=== PATIENT | female | born 2005 | race Caucasian/White ===

== ENCOUNTER 2023-11-15 00:39 | Inpatient (IN) | payer BC ==
[2023-11-15] VITALS (11 sets, daily range): BP systolic 98–127; BP diastolic 60–85; PULSE 99–111; TEMP 98.9–101.6
[~2023-11-15] VITALS: Ht 157.5 cm; Wt 52.7 kg
[2023-11-15] MEDS ORDERED: NS 1,000 ML IV ONE (01:15)
[2023-11-15 01:42] LABS: HEMOGLOBIN 12.5 g/dl (12.0-15.0); MEAN CELL VOLUME 89 fl (80.0-95.0); MEAN CORPUSCULAR HEMOGLOBIN 29 pg (26-32); MEAN CORPUSCULAR HGB CONC 33 g/dl (33.0-37.0); MEAN PLATELET VOLUME 9.1 fl (7.4-10.4); PLATELET COUNT 391 K/mm3 (130-400); RED BLOOD COUNT 4.29 M/mm3 (4.10-5.30)
[2023-11-15 02:00] LABS: PH 5.5 (5.0-8.5); URINE APPEARANCE TURBID (CLEAR/HAZY); URINE BLOOD 1+ (NEGATIVE); URINE COLOR YELLOW (YELLOW); URINE GLUCOSE NEGATIVE (NEGATIVE); URINE KETONE 1+ (NEGATIVE); URINE NITRATE POSITIVE (NEGATIVE); URINE PROTEIN(semi-quant) 2+ (NEGATIVE); URINE UROBILINOGEN 0.2 E.U/dL (0.2-1.0)
[2023-11-15 02:02] LABS: COLLECTION METHOD CLEAN CATCH
[2023-11-15 02:06] LABS: ALANINE AMINOTRANSFERASE 19 U/L (0-55); ALBUMIN 3.1 gm/dL (3.5-5.0); ALKALINE PHOSPHATASE 108 U/L (40-150); ANION GAP 15 mmol/L (7-16); AST,SGOT 14 U/L (5-34); BLOOD UREA NITROGEN 12 mg/dL (7-19); CALCIUM 9.9 mg/dL (8.4-10.2); CARBON DIOXIDE 20 mmol/L (22-29); CHLORIDE 100 mmol/L (98-107); CREATININE, serum 0.85 mg/dL (0.57-1.11); GLUCOSE 108 mg/dL (70-99); LIPASE < 7 U/L (8-78); POTASSIUM 3.7 mmol/L (3.5-4.5); SODIUM 135 mmol/L (136-145)
[2023-11-15] MEDS ORDERED: cefTRIAXone 1 G in Water For Injection,Sterile 10 ML IV ONE (02:15)
[2023-11-15 02:16] LABS: BILIRUBIN,TOTAL 0.6 mg/dL (0.2-1.2)
[2023-11-15 02:19] LABS: BAND 10 % (0-10); HYPOCHROMIA 1+; LYMPHOCYTE 12 % (20.0-51.0); NEUTROPHILS 71 % (42.0-75.2); PLATELET ESTIMATE NORMAL (NORMAL)
[2023-11-15] MEDS ORDERED: NS 50 ML IV SCH (02:21)
[2023-11-15] MEDS ORDERED: Iohexol 300 - 100 ML VIAL IV ONE (02:21)
[2023-11-15] MEDS ORDERED: RETIN-A CR0.1 20GM TP (03:37)
[2023-11-15] MEDS ORDERED: ALDACTONE50 MG PO (03:37)
[2023-11-15] MEDS ORDERED: EVOCLIN50GM TOP (03:38)
[2023-11-15] MEDS ORDERED: TRI-LO-ESTARYL1 EACH PO (03:39)
[2023-11-15] MEDS ORDERED: NS 1,000 ML IV SCH (04:00)
[2023-11-15] MEDS ORDERED: Acetaminophen 325 MG TAB PO PRN (04:00)
--- NOTE | 2023-11-15 04:20 | NUR ---
FEMALE PATIENT ARRIVED TO ROOM #328 VIA WHEELCHAIR FROM ER. PATIENT ASSISTED TO BED WITH STAND BY ASSIST. GAIT STEADY. INT TO LEFT AC INTACT WITH NO COMPLICATIONS NOTED. PATIENT ON ROOM AIR. VITAL SIGNS STABLE. PATIENT VERBALIZED UNDERSTANDING OF BED CONTROLS AND CALL LIGHT. PATIENT REQUESTED SANDWICH TRAY. SANDWICH TRAY, WATER, AND ICE GIVEN. PATIENT DENIES ANY OTHER NEEDS AT THIS TIME. BED IN LOW POSITION WITH WHEELS LOCKED WITH RAILS UP X3 AND CALL LIGHT WITHIN REACH.
[2023-11-15] MEDS ORDERED: CLINDAGEL 40 ML40 ML TOP (05:51)
[2023-11-15] MEDS ORDERED: HYDROmorphone 0.5 MG/0.5 ML SYRINGE IV PRN (06:00)
[2023-11-15] MEDS ORDERED: Ketorolac 15 MG/ML VIAL IV PRN (09:45)
[2023-11-15] MEDS ORDERED: Benzonatate 100 MG CAP PO ONE (10:00)
--- NOTE | 2023-11-15 10:21 | NUR ---
Customer Service Representative met with patient to discuss discharge planning. Patient currently lives in [place] but is from [place]. Patient is here studying at [employer]. Patient utilizes [facility] on campus for primary care and medications. Patient does not use any DME and is independent with ADLS. Patient does not have DPOA-HC and her next of kin would be her mother, Rocio (ph#[phone]) who lives in [place]. Patient plans to return home at time of discharge. Discharge Plan; Home
--- NOTE | 2023-11-15 12:13 | NUR ---
Pt resting in bed with pain 8/10 in bilateral flanks. Pain medication provided per emar. Pt reports weak, dry cough. Pt refused lovenox injection. Steady gait to bathroom. Will continue to [facility].
--- NOTE | 2023-11-15 12:57 | NUR ---
Initial visit; Patient states she is not feeling much better. Wire Winding Machine Tender let her know that she was sad that she isn't doing well. Wire Winding Machine Tender asked what she could do to help. Aracelis asked if Wire Winding Machine Tender would pray for her Grandmother Poonam Levin. Wire Winding Machine Tender said she of course would pray for her Grandmother and for Aracelis as well. She smiled faintly. Wire Winding Machine Tender felt concerned for Aracelis.
[2023-11-15] MEDS ORDERED: Benzonatate 100 MG CAP PO PRN (16:00)
--- NOTE | 2023-11-15 21:00 | NUR ---
PT A&O X3 SITTING IN BED. VSS ON ROOM AIR. PT DENYING THE NEED FOR PAIN MEDS AT THIS TIME. NS INFUSING TO LEFT AC AT 125MLS. PT DENIES FURTHER NEEDS. CALL LIGHT IN REACH
[2023-11-15] MEDS ORDERED: guaiFENesin Oral Soln 200 MG/10 ML UD PO PRN (22:15)
[2023-11-15] MEDS ORDERED: Menthol Cough/Sore Throat LOZENGE MM PRN (22:15)
--- NOTE | 2023-11-15 23:20 | NUR ---
PT CALLED OUT & STATES SHE FEELS SOA. PT TEARFUL IN ROOM. RR 16, HR 110, TEMP 101.6, OTHER VSS. LUNGS CTA. GIVEN PRN TYLENOL PER NOV. PT RECENTLY RECEIVED PRN DILAUDID FOR PAIN, PT REPORTS HAS NOT HELPED. HOSPITALIST REINA NOTIFIED & NEW ORDERS FOR RESP VIRUS PANEL & ATIVAN, GIVEN PER NOV. ALSO GAVE PRN TORADOL FOR PAIN 03/04.
[2023-11-15] MEDS ORDERED: LORazepam 2 MG/ML 1 ML VIAL IV ONE (23:30)
[2023-11-16] VITALS (11 sets, daily range): BP systolic 101–130; BP diastolic 66–81; PULSE 75–111; TEMP 98.1–102
--- NOTE | 2023-11-16 | NUR ---
PT RESTING IN BED WITH UNLABORED RESP. PT REPORTS SOA & PAIN HAVE IMPROVED. GIVEN APPLE JUICE PER PT REQUEST. DENYING FURTHER NEEDS. CALL LIGHT IN REACH
[2023-11-16] MEDS ORDERED: cefTRIAXone 1 G in Water For Injection,Sterile 10 ML IV SCH (02:00)
--- NOTE | 2023-11-16 06:15 | NUR ---
PT RESTING IN BED THIS MORNING WITH UNLABORED RESP. GIVEN PRN TORADOL FOR PAIN TO BACK/FLANK. PT DENYING SOA THIS AM. PT STILL REPORTS DRY COUGH, GAVE PRN PER NOV. DENYING FURTHER NEEDS. CALL LIGHT IN REACH
[2023-11-16 07:26] LABS: ALBUMIN 1.9 gm/dL (3.5-5.0); BILIRUBIN,DIRECT 0.2 mg/dL (0.0-0.5); BILIRUBIN,TOTAL 0.4 mg/dL (0.2-1.2); TOTAL PROTEIN 5.3 gm/dL (6.2-8.1)
--- NOTE | 2023-11-16 07:50 | NUR ---
Received report from primary nurse Gail CRONIN at 0715. Gail CRONIN notified that this student will be assisting with cares this date.
--- NOTE | 2023-11-16 08:00 | NUR ---
PATIENT IS A&O. OCCATIONALLY DISPLAYS HIGH ANXIETY BEHAVIORS. TREE FALLER REPORTS GIVING HER A ONE TIME DOSE OF ATIVAN. NOTED LOW GRADE TEMP OF 99.3, TREE FALLER REPORTS TEMP OF 101.6 AND HR OF 110 OVER NIGHT. SATS AT 95% ON RA. PATIENT REQUESTING IV DILAUDID FREQUENTLY, GIVEN WITH AM MEDS. PATIENT ALSO REPORTS COUGH AND IS VERY DRAMATIC WITH COUGHING SPELLS, OFTEN OCCURING WHEN STAFF IS PRESENT, AND IS NON-PRODUCTIVE. FLU, COVID & RESP ALL NEGATIVE. SCAN OF CHEST SHOWED NO PNA. PRN COUGH DROPS ORDERED AND OFFERED TO PATIENT. SHE ALSO REPORTS DECREASED APPETITE, NO EMESIS. IV FLUIDS INFUSING VIA PUMP INTO LEFT AC IV. LAB CALLED AND REPORTED WBC OF 21.2 WHICH IS DOWN FROM 30.4, PROVIDERS AWARE. HEAD TO TOE ASSESSMENT COMPLETE. STUDENT NURSE WORKING WITH PATIENT TODAY, SEE CHARTING. PATIENT RESTING UP IN BED WITH CALL LIGHT IN REACH.
--- NOTE | 2023-11-16 08:54 | NUR ---
PT C/O PAIN WITH COUGHING IN ABDOMEN. PRN OPTIONS PROVIDED AND PT ACCEPTED PRN ROBITUSSIN AND COUGH DROPS. CALL TO PHARMACY FOR COUGH DROPS. PT REFUSED LOVENOX INJECTION. PT REQUESTED PAIN MEDICATION. MADDI CRONIN NOTIFIED OF REQUEST.
[2023-11-16] MEDS ORDERED: Spironolactone 25 MG TAB PO SCH (09:00)
[2023-11-16] MEDS ORDERED: Ondansetron 4 MG/2 ML VIAL IV ONE (10:15)
[2023-11-16 10:34] LABS: BASO # 0.1 K/mm3 (0.0-0.2); BASO % 0.6 % (0.0-2.0); EOS # 0.1 K/mm3 (0.0-0.7); EOS % 0.3 % (0.0-4.0); GRAN # 16.8 K/mm3 (1.4-6.5); GRAN % 79.4 % (42.2-75.2); LYMPH # 2.6 K/mm3 (1.2-3.4); LYMPH % 12.2 % (20.0-51.0); MEAN CELL VOLUME 89 fl (80.0-95.0); MEAN CORPUSCULAR HGB CONC 33 g/dl (33.0-37.0); MEAN PLATELET VOLUME 9.5 fl (7.4-10.4); MONO # 1.4 K/mm3 (0.1-0.6); MONO % 6.4 % (1.7-9.3); PLATELET COUNT 369 K/mm3 (130-400); RED BLOOD COUNT 3.46 M/mm3 (4.10-5.30); REDCELL DISTRIBUTION WIDTH-CV 13.3 % (11.5-14.5)
[2023-11-16 10:37] LABS: HEMATOCRIT 30.9 % (35.0-45.0); HEMOGLOBIN 10.3 g/dl (12.0-15.0); MEAN CORPUSCULAR HEMOGLOBIN 30 pg (26-32)
[2023-11-16] MEDS ORDERED: oxyCODONE 5 MG TAB PO PRN (10:45)
[2023-11-16 10:49] LABS: CREATININE, serum 0.68 mg/dL (0.57-1.11); POTASSIUM 3.6 mmol/L (3.5-4.5)
--- NOTE | 2023-11-16 11:58 | NUR ---
REPORTED OFF PRIMARY NURSE MADDI CRONIN.
--- NOTE | 2023-11-16 13:11 | NUR ---
D: Initial visit: Key Account Director stopped by room on rounds. Pt was resting and content. A: Pt has no needs right now. She is from [place] going to school at [employer]. Her parents grew up in [place] and both went to [employer]. P: Key Account Director informed pt that if she needed anything from the envelope patternmaker area to let her nurse know. Key Account Director will follow up as needed.
--- NOTE | 2023-11-16 13:30 | NUR ---
PATIENT REFUSING LUNCH, REPORTS DECREASE APPETITE. PATIENT ALSO REQUESTING SOMETHING MORE FOR PAIN. GAVE PRN ROXICODONE, SEE MAR. PATIENT STILL COUGHING A LOT, NON-PRODUCTIVE, PRN COUGH DROPS.
--- NOTE | 2023-11-16 14:33 | NUR ---
conditioning room worker was informed pt will potentially discharge tomorrow but is experiencing feels of unwell, decreased apetite, and weakness. SW was informed by Director Ana Sullivan to speak with pt and see if she would be agreeable to SW calling the clinical documentation improvement specialist at [facility] to inform them of her medical status and potential to not noriega back to classess immediately. SW met with pt and informed her of this. She appeared relieved and gave SW permission to call the [facility]. Pt reports she is in the college of [employer]. Pt was informed she is still responsible for informing her professors of the inability to attend classes sometimes. Pt verbalized understanding and was agreeable to this plan. SW spoke with the Cosmetologist Apprentice clinical documentation improvement specialist and informed him of patient's status and medical concerns. He was agreeable to the plan and informed SW that they will support pt in anyway and will follow up with her and let faculty know too. He informed SW to tell patient to look out for an email from the student support and accountability office to assist her. SW informed pt via voicemail as she did not answer her room phone. Discharge Plan: home
--- NOTE | 2023-11-16 15:00 | NUR ---
REPORT RECEIVED FROM MEHRDAD MASCORRO
--- NOTE | 2023-11-16 16:00 | NUR ---
PT RECIEVED TYLENOL FOR 102.0 TEMP. PT REPORTING HEADACHE FROM COUGHING, PT REPORTS IMPROVED COUGH THIS EVENING
--- NOTE | 2023-11-16 20:30 | NUR ---
PT IN BED, HAS IVF TO LAC WITH ANTIBIOTIC INFUSING. IV SITE HAS GOOD BLOOD RETURN, MILDLY TENDER WITH PALPATION. PT IS ALERT AND ORIENTED X4.
[2023-11-16] MEDS ORDERED: Melatonin 3 MG TAB PO PRN (23:45)
--- NOTE | 2023-11-16 23:46 | NUR ---
PT ASKING FOR COUGH MED, HAS NPC. PT ALSO WANTING MELATONIN AND PAIN MED. MEDICATED WITH TESSALON PERLES, MELATONIN 9MG AND OXYCODONE 5MG PO NOW. PT INDEPENDENT IN ROOM.
[2023-11-17] VITALS (11 sets, daily range): BP systolic 85–128; BP diastolic 71–81; PULSE 71–106; TEMP 98–101.2
--- NOTE | 2023-11-17 03:53 | NUR ---
REPORTED BY PCT PT HAS FEVER 101.2. PT HAS HEATING PAD ON. MEDICATED WITH TYLENOL 650MG PO, ENCOURAGED NOT TO USE THE HEATING PAD. HAVING NPC, ROBITUSSIN GIVEN. PT UP TO VOID, URINE IS YELLOW. BACK TO BED. IV ANTIBIOTIC CONNECTED AND INFUSING WITHOUT PROBLEM.
--- NOTE | 2023-11-17 07:06 | NUR ---
Received report from NOC Nurse Vargas RN with Primary Nurse Bibi CRONIN.
--- NOTE | 2023-11-17 08:05 | NUR ---
PT RESTING IN BED STATING NO PAIN UNLESS COUGHING. STEADY GAIT AROUND ROOM, A/O X4, TOLERATING GENERAL DIET WELL, PT WITH DRY COUGH. NO NEEDS AT THIS TIME. WILL CONTINUE TO MONITOR.
--- NOTE | 2023-11-17 08:49 | NUR ---
PT OFFERED SUPPLIES FOR SHOWER AND FRESH LINEN. PT ACCEPTED OFFER AND WAS INFORMED TO CALL WHEN READY TO SHOWER FOR NURSE TO COVER IV. PT AxO X4, STEADY GAIT, PAIN ONLY WITH COUGH. PT REFUSING LOVENOX INJ. PT UNDERSTANDS HOW TO CALL AND CALL LIGHT WITHIN REACH.
[2023-11-17] MEDS ORDERED: Patient's Own Medication Item PO SCH (09:00)
[2023-11-17 09:25] LABS: BASO # 0.1 K/mm3 (0.0-0.2); BASO % 0.4 % (0.0-2.0); EOS # 0.1 K/mm3 (0.0-0.7); EOS % 0.9 % (0.0-4.0); GRAN # 8.8 K/mm3 (1.4-6.5); GRAN % 74.9 % (42.2-75.2); HEMOGLOBIN 10.2 g/dl (12.0-15.0); LYMPH # 1.8 K/mm3 (1.2-3.4); LYMPH % 15.4 % (20.0-51.0); MEAN CELL VOLUME 87 fl (80.0-95.0); MEAN CORPUSCULAR HEMOGLOBIN 29 pg (26-32); MEAN CORPUSCULAR HGB CONC 33 g/dl (33.0-37.0); MEAN PLATELET VOLUME 8.9 fl (7.4-10.4); MONO # 0.9 K/mm3 (0.1-0.6); MONO % 7.5 % (1.7-9.3); PLATELET COUNT 439 K/mm3 (130-400); RED BLOOD COUNT 3.51 M/mm3 (4.10-5.30); REDCELL DISTRIBUTION WIDTH-CV 13.2 % (11.5-14.5)
[2023-11-17 09:28] LABS: HEMATOCRIT 30.5 % (35.0-45.0)
[2023-11-17 09:36] LABS: CALCIUM 7.9 mg/dL (8.4-10.2); CREATININE, serum 0.72 mg/dL (0.57-1.11); POTASSIUM 3.9 mmol/L (3.5-4.5)
--- NOTE | 2023-11-17 12:14 | NUR ---
REPORTED OFF TO PRIMARY NURSE KIRSTIE Trinidad RN
[2023-11-17 13:17] LABS: MONOSCREEN NEGATIVE
--- NOTE | 2023-11-17 14:00 | NUR ---
CRITCAL TROPONIN FOR 0.038 CALLED TO KIRSTIE CASTRO. NO NEW ORDERS AT THIS TIME.
[2023-11-17] MEDS ORDERED: Amoxicillin/Clavulanate K+ 500/125 MG TAB PO SCH (17:00)
--- NOTE | 2023-11-17 17:38 | NUR ---
MORRIS CASTRO NOTIFIED OF CRITICAL TROPININ OF 0.041. NO NEW ORDERS AT THIS TIME.
--- NOTE | 2023-11-17 21:00 | NUR ---
LAB UNABLE TO OBTAIN BLOOD FOR ORDERED LABS, REINA Grace APRN NOTIFIED, SHE ATTEMPTED TO PLACE NEW IV SITE X2, THEN ATTEMPTED JUST BLOOD DRAW WITH BUTTERFLY X1, WANTS LAB TO RETRY IN AM.
[2023-11-18] VITALS (7 sets, daily range): BP systolic 100–136; BP diastolic 64–75; PULSE 48–82; TEMP 98.2–98.8
[2023-11-18] MEDS ORDERED: guaiFENesin/Dextromethorphan Oral Soln 200-20 MG/10 ML UD PO PRN (00:45)
--- NOTE | 2023-11-18 08:00 | NUR ---
PATIENT IS A&O AND SITTING UP IN BED. VSS. C/O PAIN RATED AT 5/10 AND REQUESTING SOMETHING FOR PAIN, GIVEN. PATIENT ALSO REPORTS HER COUGH IS BETTER AND COMES & GOES, GAVE PRN COUGH MEDS, SEE MAR. NO C/O N/V. LEFT AC IV TO INT. INDEPENDENT IN ROOM. HEAD TO TOE ASSESSMENT WNL. REFUSED AM LOVENOX INJ. NO OTHER NEEDS AT THIS TIME. CALL LIGHT IN REACH.
[2023-11-18 09:33] LABS: BASO % 0.5 % (0.0-2.0); EOS # 0.2 K/mm3 (0.0-0.7); EOS % 1.8 % (0.0-4.0); GRAN # 5.2 K/mm3 (1.4-6.5); GRAN % 63.5 % (42.2-75.2); HEMOGLOBIN 10.3 g/dl (12.0-15.0); LYMPH # 2.1 K/mm3 (1.2-3.4); MEAN CELL VOLUME 89 fl (80.0-95.0); MEAN CORPUSCULAR HEMOGLOBIN 29 pg (26-32); MEAN CORPUSCULAR HGB CONC 33 g/dl (33.0-37.0); MEAN PLATELET VOLUME 9.1 fl (7.4-10.4); MONO # 0.7 K/mm3 (0.1-0.6); MONO % 8.5 % (1.7-9.3); PLATELET COUNT 498 K/mm3 (130-400); RED BLOOD COUNT 3.58 M/mm3 (4.10-5.30); REDCELL DISTRIBUTION WIDTH-CV 12.8 % (11.5-14.5)
[2023-11-18 09:42] LABS: HEMATOCRIT 31.7 % (35.0-45.0)
[2023-11-18 10:13] LABS: CALCIUM 8.8 mg/dL (8.4-10.2); CREATININE, serum 0.74 mg/dL (0.57-1.11); POTASSIUM 4.2 mmol/L (3.5-4.5)
[2023-11-18 10:20] LABS: TROPONIN-I 0.029 ng/mL (0.00-0.033)
[2023-11-18] MEDS ORDERED: TYLENOL 325MG325 MG PO (12:25)
[2023-11-18] MEDS ORDERED: TESSALON P100 MG/CAP PO (12:25)
[2023-11-18] MEDS ORDERED: HALLS9.1 MG MM (12:26)
[2023-11-18] MEDS ORDERED: ROBITUSSIN DM 105 ML PO (12:26)
[2023-11-18] MEDS ORDERED: AMOXICILLIN/CLA1 TA1 PO (12:28)
[2023-11-18] MEDS ORDERED: IBU600 MG PO (12:29)
--- NOTE | 2023-11-18 13:00 | NUR ---
HOSPITALIST AT BEDSIDE, SEE ORDERS.
--- NOTE | 2023-11-18 14:20 | NUR ---
PATIENT'S RIDE HERE. GAVE DISCHARGE INSTRUCTIONS, E-SCRIPTS SENT, AND DISCUSSED F/U APT. ANSWERED QUESTIONS/CONCERNS. DC'D IV SITE AND COVERED SITE WITH [employer]. PATIENT IS DRESSED, PACKED AND DISCHARGED WITH BOYFIEND TO PRIVATE VEHICLE.
--- NOTE | 2023-11-18 14:27 | NUR ---
hall worker was notified patient needs a PCP for a follow up in a week. SW met with patient, patient chose [facility]. SW notified patient's nurse. Discharge plan: Home
== END 2023-11-18 14:30 | disposition home or self-care (01) | DRG 872 ==
LOC: COL.ER 00:39 → SURG 03:54
PROVIDERS: Emergency Medicine; Nurse Practitioner Family; Physician Assistant; ADMIT Hospitalist
DX: A41.9 Sepsis, unspecified organism (principal); L70.9 Acne, unspecified; R79.89 Other specified abnormal findings of blood chemistry; R10.84 Generalized abdominal pain; Z11.52 Encounter for screening for COVID-19
CPT/HCPCS: J0696; J1170; J1650; J1885; J2060; J2543; J7030; Q9967